=== PATIENT | male | born 1930 | race Caucasian/White ===

== ENCOUNTER 2017-12-21 12:17 | Inpatient (IN) | payer MEDICARE, BC ==
[~2017-12-21] VITALS: Ht 177.8 cm; Wt 68.2 kg
[2017-12-21 12:45] LABS: BASOPHILS % (AUTO) 0.3 % (0-1); EOSINOPHILS # (AUTO) 0.2 X10'3 (0-0.9); EOSINOPHILS % (AUTO) 3.1 % (0-6); HEMATOCRIT 34.5 % (42.0-52.0); HEMOGLOBIN 11.8 g/dl (14.0-17.9); LYMPHOCYTES # (AUTO) 0.7 X10'3 (1.1-4.8); MEAN CORPUSCULAR HEMOGLOBIN 32.4 PG (27.0-31.0); MEAN CORPUSCULAR HGB CONC 34.2 % (33.0-36.5); MEAN CORPUSCULAR VOLUME 94.7 FL (78-98); MEAN PLATELET VOLUME 8.8 FL (7.4-10.4); MONOCYTES # (AUTO) 0.5 X10'3 (0-0.9); NEUTROPHILS # (AUTO) 5.2 X10'3 (1.8-7.7); NEUTROPHILS % (AUTO) 77.6 % (42-75); PLATELET COUNT 179 X10'3 (140-440); RED BLOOD COUNT 3.65 X10'6 (4.70-6.10); RED CELL DISTRIBUTION WIDTH 13.7 % (11.5-14.5); WHITE BLOOD COUNT 6.7 X10'3 (4.5-11.0)
[2017-12-21 12:54] LABS: PARTIAL THROMBOPLASTIN TIME 29 SECONDS (22-32); PROTHROMBIN TIME 10.7 SECONDS (9.0-12.0)
[2017-12-21 13:07] LABS: ALANINE AMINOTRANSFERASE 19 U/L (12-78); ALBUMIN 3.5 G/DL (3.4-5.0); ALBUMIN/GLOBULIN RATIO 0.9 (1.1-1.5); ALKALINE PHOSPHATASE 75 IU/L (46-116); ANION GAP 6 (8-16); ASPARTATE AMINO TRANSFERASE 19 U/L (10-37); BILIRUBIN,TOTAL 0.8 MG/DL (0.1-1.0); BLOOD UREA NITROGEN 16 MG/DL (7-18); BUN/CREATININE RATIO 20.5 (5.4-32.0); CALCIUM 8.8 MG/DL (8.5-10.1); CHLORIDE 90 MMOL/L (99-107); CREATININE 0.78 MG/DL (0.60-1.10); GLUCOSE 108 MG/DL (70-104); MAGNESIUM 1.8 MG/DL (1.5-2.4); POTASSIUM 4.2 MMOL/L (3.5-5.1); SODIUM 123 MMOL/L (135-145); TOTAL CARBON DIOXIDE 26.6 MMOL/L (24-32); TOTAL PROTEIN 7.4 G/DL (6.4-8.2); eGFR > 90 ML/MIN
[2017-12-21] MEDS ORDERED: normal saline 1000ML IV soln IVB ONE (13:20)
[2017-12-21] MEDS ORDERED: potassium Cl 20 mEq SR tablet PO PRN ×2 (13:40)
[2017-12-21] MEDS ORDERED: magnesium 4gm in 100ml NS 100 ML IV PRN (13:40)
[2017-12-21] MEDS ORDERED: acetaminophen 325mg tablet PO PRN ×2 (13:40→18:15)
[2017-12-21] MEDS ORDERED: HYDROcodone/acetaminophen 5mg/325mg tablet PO PRN ×2 (13:40→18:15)
[2017-12-21] MEDS ORDERED: potassium Cl 40MEQ/NS 500ml 500 ML IV PRN ×2 (13:40)
[2017-12-21] MEDS ORDERED: MORPHINE 2MG in 2ml NS syringe IV PRN (13:40)
[2017-12-21] MEDS ORDERED: magnesium Cl slow-release 64mg tablet PO PRN (13:40)
[2017-12-21] MEDS ORDERED: mag hydrox/Alum hydrox/simeth 30ml oral suspension PO PRN ×2 (13:40→18:15)
[2017-12-21] MEDS ORDERED: magnesium hydroxide 30ml (MOM) UD suspension PO PRN ×2 (13:40→18:15)
[2017-12-21] MEDS ORDERED: magnesium 2GM in 50ml NS 50 ML IV PRN (13:40)
[2017-12-21] MEDS ORDERED: ondansetron/PF 4mg/2ml inj IV PRN ×2 (13:40→18:15)
[2017-12-21] MEDS ORDERED: CARV-50 PO (14:20)
[2017-12-21] MEDS ORDERED: LISI-600 PO (14:20)
[2017-12-21] MEDS ORDERED: LEVO112T5 PO (14:20)
[2017-12-21] MEDS ORDERED: FURO-150 PO (14:20)
[2017-12-21] MEDS ORDERED: ASPI-1265 PO (14:20)
[2017-12-21] MEDS ORDERED: ALBU8HFA PO (14:20)
[2017-12-21] MEDS ORDERED: FLUT1DIS INH (14:20)
[2017-12-21] MEDS ORDERED: OMEP20TA23 PO (14:20)
[2017-12-21 16:58] LABS: CLARITY,URINE CLEAR (Clear); COLOR,URINE YELLOW (Yellow); GLUCOSE, URINE NEGATIVE (Neg); KETONES,URINE TRACE mg/dl (Neg); LEUKOCYTE ESTERASE ,URINE SMALL (Neg); NITRITES, URINE NEGATIVE (Neg); OCCULT BLOOD,URINE LARGE (Neg); PH,URINE 5.5 (4.8-8.0); PROTEIN,URINE NEGATIVE (Neg); UROBILINOGEN,URINE 0.2 E.U/dL (0.2-1.0)
[2017-12-21 16:59] LABS: UA COLLECTION TYPE FOLEY CATH
[2017-12-21 17:08] LABS: BACTERIA,URINE NONE SEEN /HPF (Neg); SQUAMOUS EPITHELIAL CELL,UR NONE SEEN /LPF (FEW); WBC,URINE 0-4 /HPF (0-4)
[2017-12-21] MEDS ORDERED: morphine 4 MG/ML inj SYRINge IV PRN (18:15)
[2017-12-21] MEDS ORDERED: HYDROcodone/acetaminophen 10/325mg tab PO PRN (18:15)
[2017-12-21] MEDS ORDERED: DOBUTamine-DoBUTrex 500mg/D5W 250 ML IV SCH (18:15)
[2017-12-21] MEDS ORDERED: albuterol 2.5 MG/3 ML nebule NEB PRN (18:40)
[2017-12-21] MEDS: furosemide 40mg/4ml inj IV SCH (20:00)
[2017-12-21] MEDS ORDERED: temazepam 15mg capsule PO PRN (21:00)
[2017-12-21] MEDS ORDERED: LIDOcaine 1.5% w/epinephrine 1:200,000 5ml ampul SQ ONE (21:40)
[2017-12-21 23:00] VITALS: BP 93/48
[2017-12-22] VITALS (18 sets, daily range): BP systolic 74–100; BP diastolic 42–60
[2017-12-22] MEDS: normal saline 500ml IV soln 1,000 ML IV SCH ×3 (01:10→21:53)
[2017-12-22 01:19] LABS: ALBUMIN 2.9 G/DL (3.4-5.0); ANION GAP 7 (8-16); BLOOD UREA NITROGEN 13 MG/DL (7-18); BUN/CREATININE RATIO 18.8 (5.4-32.0); CALCIUM 8.4 MG/DL (8.5-10.1); CHLORIDE 93 MMOL/L (99-107); CREATININE 0.69 MG/DL (0.60-1.10); GLUCOSE 109 MG/DL (70-104); MAGNESIUM 1.8 MG/DL (1.5-2.4); POTASSIUM 3.6 MMOL/L (3.5-5.1); SODIUM 127 MMOL/L (135-145); TOTAL CARBON DIOXIDE 26.7 MMOL/L (24-32); eGFR > 90 ML/MIN
[2017-12-22 01:23] LABS: BASOPHILS % (AUTO) 0.6 % (0-1); EOSINOPHILS # (AUTO) 0.2 X10'3 (0-0.9); EOSINOPHILS % (AUTO) 3.3 % (0-6); HEMATOCRIT 31.1 % (42.0-52.0); HEMOGLOBIN 10.9 g/dl (14.0-17.9); LYMPHOCYTES # (AUTO) 0.7 X10'3 (1.1-4.8); LYMPHOCYTES % (AUTO) 14.9 % (21-51); MEAN CORPUSCULAR HGB CONC 34.9 % (33.0-36.5); MEAN CORPUSCULAR VOLUME 94.6 FL (78-98); MEAN PLATELET VOLUME 9.5 FL (7.4-10.4); MONOCYTES # (AUTO) 0.5 X10'3 (0-0.9); MONOCYTES % (AUTO) 9.4 % (2-12); NEUTROPHILS # (AUTO) 3.5 X10'3 (1.8-7.7); NEUTROPHILS % (AUTO) 71.8 % (42-75); PLATELET COUNT 164 X10'3 (140-440); RED BLOOD COUNT 3.29 X10'6 (4.70-6.10); RED CELL DISTRIBUTION WIDTH 12.5 % (11.5-14.5); WHITE BLOOD COUNT 4.9 X10'3 (4.5-11.0)
[2017-12-22] MEDS: normal saline 1000ml 1,000 ML IV SCH ×2 (06:10→11:10)
[2017-12-22] MEDS ORDERED: normal saline 500ml IV soln 1,000 ML IV SCH (06:40)
[2017-12-22] MEDS: K and/or MAG REPLACEMENT MC SCH (08:00)
[2017-12-22] MEDS: furosemide 40mg/4ml inj IV SCH ×2 (08:00→20:00)
[2017-12-22] MEDS ORDERED: aspirin 81mg tab.chew PO SCH (08:00)
[2017-12-22] MEDS ORDERED: carVEDilol 3.125mg tablet PO SCH (08:00)
[2017-12-22] MEDS ORDERED: lisinopril 10 MG tablet PO SCH (08:00)
[2017-12-22] MEDS ORDERED: DOBUTamine-DoBUTrex 500mg/D5W 250 ML IV SCH (08:30)
[2017-12-22] MEDS: pantoprazole 40mg Tablet.DR PO SCH (09:19)
[2017-12-22] MEDS: levoTHYROXINE 112mcg tablet PO SCH (09:20)
[2017-12-22] MEDS: DOBUTamine-DoBUTrex 500mg/D5W 250 ML IV SCH ×2 (10:35→20:22)
[2017-12-22] MEDS ORDERED: fentaNYL/PF 50MCG/1 ML 2ML syringe ONE (12:41)
[2017-12-22] MEDS ORDERED: nitroGLYCERIN-Tridil 50MG/D5W 250 ML IV ONE (12:41)
[2017-12-22] MEDS ORDERED: LIDOcaine 1%/PF (10mg/ml) 5ml vial ONE (12:41)
[2017-12-22] MEDS ORDERED: midazolam 2 mg/2 ml injection ONE (12:41)
[2017-12-22] MEDS ORDERED: iohexol 350 MG/ML 50ML vial IV ONE ×2 (12:42→14:29)
[2017-12-22] MEDS ORDERED: heparin 1,000unit/ml 10ml vial 10 ML ONE (12:42)
[2017-12-22] MEDS ORDERED: iohexol 350MG/ML 100ml bottle IV ONE ×3 (12:42→15:03)
[2017-12-22] MEDS ORDERED: heparin 1,000 UNITS/NS 500ml 500 ML ONE (14:37)
[2017-12-22] MEDS ORDERED: clopidogrel 300mg tablet ONE (15:13)
[2017-12-22] MEDS ORDERED: normal saline 1000ml 1,000 ML IV ONE (16:25)
[2017-12-22] MEDS ORDERED: OXAZEpam 15mg capsule PO PRN ×2 (16:30→16:40)
[2017-12-22] MEDS ORDERED: acetaminophen 325mg tablet PO PRN ×2 (16:30→16:40)
[2017-12-22] MEDS ORDERED: cyclobenzaprine 10mg tablet PO PRN (16:30)
[2017-12-22] MEDS ORDERED: aspirin 325mg tablet PO ONE (16:35)
[2017-12-22] MEDS ORDERED: magnesium hydroxide 30ml (MOM) UD suspension PO PRN (16:40)
[2017-12-22 17:51] LABS: ISTAT HGB ART 10.2 g/dl (14.0-18.0); ISTAT Hct ART 30 %PCV (42-52); ISTAT O2 SATURATION ARTERIAL 95 % (95-98); ISTAT SOURCE ART
[2017-12-22] MEDS ORDERED: docusate sod 100mg capsule PO SCH (20:00)
[2017-12-22] MEDS: carVEDilol 3.125mg tablet PO SCH (20:00)
[2017-12-22] MEDS: docusate sod 100mg capsule PO SCH (20:22)
[2017-12-23] VITALS (9 sets, daily range): BP systolic 84–94; BP diastolic 44–67
[2017-12-23 05:54] LABS: BASOPHILS % (AUTO) 0.5 % (0-1); EOSINOPHILS # (AUTO) 0.3 X10'3 (0-0.9); EOSINOPHILS % (AUTO) 5.1 % (0-6); HEMATOCRIT 28.4 % (42.0-52.0); HEMOGLOBIN 9.8 g/dl (14.0-17.9); LYMPHOCYTES # (AUTO) 0.6 X10'3 (1.1-4.8); LYMPHOCYTES % (AUTO) 11.8 % (21-51); MEAN CORPUSCULAR HEMOGLOBIN 32.7 PG (27.0-31.0); MEAN CORPUSCULAR HGB CONC 34.3 % (33.0-36.5); MEAN CORPUSCULAR VOLUME 95.3 FL (78-98); MEAN PLATELET VOLUME 9.2 FL (7.4-10.4); MONOCYTES # (AUTO) 0.6 X10'3 (0-0.9); MONOCYTES % (AUTO) 11.4 % (2-12); NEUTROPHILS # (AUTO) 3.5 X10'3 (1.8-7.7); NEUTROPHILS % (AUTO) 71.2 % (42-75); PLATELET COUNT 143 X10'3 (140-440); RED BLOOD COUNT 2.99 X10'6 (4.70-6.10); RED CELL DISTRIBUTION WIDTH 13.6 % (11.5-14.5); WHITE BLOOD COUNT 4.9 X10'3 (4.5-11.0)
[2017-12-23 06:53] LABS: ALBUMIN 2.6 G/DL (3.4-5.0); ANION GAP 8 (8-16); BLOOD UREA NITROGEN 6 MG/DL (7-18); CALCIUM 7.9 MG/DL (8.5-10.1); CHLORIDE 97 MMOL/L (99-107); CREATININE 0.67 MG/DL (0.60-1.10); GLUCOSE 82 MG/DL (70-104); MAGNESIUM 1.6 MG/DL (1.5-2.4); POTASSIUM 3.5 MMOL/L (3.5-5.1); SODIUM 130 MMOL/L (135-145); TOTAL CARBON DIOXIDE 24.8 MMOL/L (24-32); eGFR > 90 ML/MIN
[2017-12-23] MEDS: normal saline 500ml IV soln 1,000 ML IV SCH ×3 (07:10→20:49)
[2017-12-23] MEDS: K and/or MAG REPLACEMENT MC SCH (08:00)
[2017-12-23] MEDS ORDERED: clopidogrel 75mg tablet PO SCH (08:00)
[2017-12-23] MEDS: furosemide 40mg/4ml inj IV SCH ×2 (08:00→20:00)
[2017-12-23] MEDS: carVEDilol 3.125mg tablet PO SCH ×2 (08:00→20:00)
[2017-12-23] MEDS: pantoprazole 40mg Tablet.DR PO SCH (08:10)
[2017-12-23] MEDS: docusate sod 100mg capsule PO SCH ×2 (08:10→20:20)
[2017-12-23] MEDS: clopidogrel 75mg tablet PO SCH (08:11)
[2017-12-23] MEDS: spironolactone 25 MG tablet PO SCH (08:11)
[2017-12-23] MEDS: levoTHYROXINE 112mcg tablet PO SCH (08:11)
[2017-12-23] MEDS: aspirin 325mg tablet PO SCH (08:11)
[2017-12-23] MEDS ORDERED: aspirin 325mg tablet PO SCH (08:30)
[2017-12-23] MEDS: lisinopril 5mg tablet PO SCH (12:00)
[2017-12-23] MEDS: DOBUTamine-DoBUTrex 500mg/D5W 250 ML IV SCH (20:48)
[2017-12-24] VITALS (9 sets, daily range): BP systolic 84–114; BP diastolic 43–72
[2017-12-24 03:02] LABS: BASOPHILS # (AUTO) 0.1 X10'3 (0-0.2); BASOPHILS % (AUTO) 1.5 % (0-1); EOSINOPHILS # (AUTO) 0.4 X10'3 (0-0.9); EOSINOPHILS % (AUTO) 5.3 % (0-6); HEMATOCRIT 28.4 % (42.0-52.0); HEMOGLOBIN 9.8 g/dl (14.0-17.9); LYMPHOCYTES # (AUTO) 0.9 X10'3 (1.1-4.8); MEAN CORPUSCULAR HEMOGLOBIN 32.8 PG (27.0-31.0); MEAN CORPUSCULAR HGB CONC 34.6 % (33.0-36.5); MEAN CORPUSCULAR VOLUME 94.9 FL (78-98); MEAN PLATELET VOLUME 8.3 FL (7.4-10.4); MONOCYTES # (AUTO) 0.7 X10'3 (0-0.9); MONOCYTES % (AUTO) 10.7 % (2-12); NEUTROPHILS # (AUTO) 4.6 X10'3 (1.8-7.7); NEUTROPHILS % (AUTO) 69.5 % (42-75); PLATELET COUNT 152 X10'3 (140-440); RED BLOOD COUNT 2.99 X10'6 (4.70-6.10); RED CELL DISTRIBUTION WIDTH 13.5 % (11.5-14.5); WHITE BLOOD COUNT 6.7 X10'3 (4.5-11.0)
[2017-12-24 03:24] LABS: ALBUMIN 2.6 G/DL (3.4-5.0); ANION GAP 5 (8-16); BLOOD UREA NITROGEN 8 MG/DL (7-18); BUN/CREATININE RATIO 12.5 (5.4-32.0); CHLORIDE 97 MMOL/L (99-107); CREATININE 0.64 MG/DL (0.60-1.10); GLUCOSE 91 MG/DL (70-104); MAGNESIUM 1.7 MG/DL (1.5-2.4); POTASSIUM 3.9 MMOL/L (3.5-5.1); SODIUM 129 MMOL/L (135-145); TOTAL CARBON DIOXIDE 27.5 MMOL/L (24-32); eGFR > 90 ML/MIN
[2017-12-24] MEDS ORDERED: DOBUTamine-DoBUTrex 500mg/D5W 250 ML IV SCH (07:00)
[2017-12-24] MEDS: levoTHYROXINE 112mcg tablet PO SCH (07:27)
[2017-12-24] MEDS: docusate sod 100mg capsule PO SCH ×2 (07:27→20:19)
[2017-12-24] MEDS: pantoprazole 40mg Tablet.DR PO SCH (07:27)
[2017-12-24] MEDS: clopidogrel 75mg tablet PO SCH (07:28)
[2017-12-24] MEDS: aspirin 325mg tablet PO SCH (07:28)
[2017-12-24] MEDS: K and/or MAG REPLACEMENT MC SCH (08:00)
[2017-12-24] MEDS: carVEDilol 3.125mg tablet PO SCH ×2 (08:00→20:00)
[2017-12-24] MEDS: furosemide 40mg/4ml inj IV SCH (08:00)
[2017-12-24] MEDS: spironolactone 25 MG tablet PO SCH (08:30)
[2017-12-24] MEDS: cyclobenzaprine 10mg tablet PO PRN ×2 (10:59→20:21)
[2017-12-24] MEDS: lisinopril 5mg tablet PO SCH (12:00)
[2017-12-24] MEDS ORDERED: magnesium 2GM in 50ml NS 50 ML IV PRN (22:15)
[2017-12-24] MEDS ORDERED: potassium Cl 20 mEq SR tablet PO PRN ×2 (22:15)
[2017-12-24] MEDS ORDERED: magnesium 4gm in 100ml NS 100 ML IV PRN (22:15)
[2017-12-24] MEDS ORDERED: potassium Cl 40MEQ/NS 500ml 500 ML IV PRN ×2 (22:15)
[2017-12-24] MEDS: magnesium Cl slow-release 64mg tablet PO PRN (23:06)
[2017-12-24] MEDS ORDERED: LIDOcaine 2% 10ml TOPICAL JELLY (Urojet) MM ONE (23:50)
[2017-12-25 01:57] LABS: BASOPHILS # (AUTO) 0.1 X10'3 (0-0.2); BASOPHILS % (AUTO) 0.9 % (0-1); EOSINOPHILS # (AUTO) 0.7 X10'3 (0-0.9); EOSINOPHILS % (AUTO) 11.4 % (0-6); HEMATOCRIT 30.1 % (42.0-52.0); HEMOGLOBIN 10.4 g/dl (14.0-17.9); LYMPHOCYTES # (AUTO) 1.1 X10'3 (1.1-4.8); LYMPHOCYTES % (AUTO) 17.4 % (21-51); MEAN CORPUSCULAR HGB CONC 34.6 % (33.0-36.5); MEAN CORPUSCULAR VOLUME 95.5 FL (78-98); MEAN PLATELET VOLUME 8.9 FL (7.4-10.4); MONOCYTES # (AUTO) 0.5 X10'3 (0-0.9); MONOCYTES % (AUTO) 8.6 % (2-12); NEUTROPHILS # (AUTO) 3.8 X10'3 (1.8-7.7); NEUTROPHILS % (AUTO) 61.7 % (42-75); PLATELET COUNT 155 X10'3 (140-440); RED BLOOD COUNT 3.15 X10'6 (4.70-6.10); RED CELL DISTRIBUTION WIDTH 13.2 % (11.5-14.5); WHITE BLOOD COUNT 6.2 X10'3 (4.5-11.0)
[2017-12-25 01:59] LABS: ALBUMIN 2.7 G/DL (3.4-5.0); ANION GAP 6 (8-16); BLOOD UREA NITROGEN 11 MG/DL (7-18); BUN/CREATININE RATIO 16.9 (5.4-32.0); CALCIUM 8.2 MG/DL (8.5-10.1); CHLORIDE 96 MMOL/L (99-107); CREATININE 0.65 MG/DL (0.60-1.10); GLUCOSE 95 MG/DL (70-104); MAGNESIUM 1.8 MG/DL (1.5-2.4); SODIUM 129 MMOL/L (135-145); TOTAL CARBON DIOXIDE 26.9 MMOL/L (24-32); eGFR > 90 ML/MIN
[2017-12-25 03:00] VITALS: BP 96/63
[2017-12-25 06:55] VITALS: BP 102/68
[2017-12-25] MEDS: K and/or MAG REPLACEMENT MC SCH (08:00)
[2017-12-25] MEDS ORDERED: furosemide 40mg/4ml inj IV SCH (08:00)
[2017-12-25] MEDS: carVEDilol 3.125mg tablet PO SCH (08:00)
[2017-12-25] MEDS: levoTHYROXINE 112mcg tablet PO SCH (08:19)
[2017-12-25] MEDS: pantoprazole 40mg Tablet.DR PO SCH (08:19)
[2017-12-25] MEDS: aspirin 325mg tablet PO SCH (08:19)
[2017-12-25] MEDS: docusate sod 100mg capsule PO SCH (08:19)
[2017-12-25] MEDS: clopidogrel 75mg tablet PO SCH (08:19)
[2017-12-25] MEDS: magnesium Cl slow-release 64mg tablet PO PRN (08:20)
[2017-12-25] MEDS: cyclobenzaprine 10mg tablet PO PRN (08:25)
[2017-12-25] MEDS: spironolactone 25 MG tablet PO SCH (08:30)
[2017-12-25 11:00] VITALS: BP 83/56
[2017-12-25] MEDS: lisinopril 5mg tablet PO SCH (12:00)
[2017-12-25] MEDS ORDERED: SPIR25TA3 PO (12:56)
[2017-12-25] MEDS ORDERED: CLOP75TA35 PO (12:56)
[2017-12-25] MEDS ORDERED: LISI-604 PO (12:56)
[2017-12-25] MEDS ORDERED: COR3.125T PO (12:56)
[2017-12-26 05:41] LABS: ISTAT Hct MIX 29 %PCV (42-52); ISTAT O2 SATURATION MIX VENOUS 72 % (60-80); ISTAT SOURCE MIX
== END 2017-12-25 16:25 | disposition home or self-care (01) | DRG 246 ==
LOC: ER 12:17 → ED HOLD 13:38 → PCU 3S 22:40
PROVIDERS: ADMIT Internal Medicine; ATTEND Internal Medicine
PROC: 02HV33Z Insertion of Infusion Device into Superior Vena Cava, Percutaneous Approach (ICD-10-PCS; 2017-12-21)
PROC: 027034Z Dilation of Coronary Artery, One Artery with Drug-eluting Intraluminal Device, Percutaneous Approach (ICD-10-PCS; principal; 2017-12-22)
PROC: 4A023N8 Measurement of Cardiac Sampling and Pressure, Bilateral, Percutaneous Approach (ICD-10-PCS; 2017-12-22)
PROC: B2111ZZ Fluoroscopy of Multiple Coronary Arteries using Low Osmolar Contrast (ICD-10-PCS; 2017-12-22)
PROC: B2151ZZ Fluoroscopy of Left Heart using Low Osmolar Contrast (ICD-10-PCS; 2017-12-22)
PROC: B3101ZZ Fluoroscopy of Thoracic Aorta using Low Osmolar Contrast (ICD-10-PCS; 2017-12-22)
DX: I11.0 Hypertensive heart disease with heart failure (principal); R57.0 Cardiogenic shock; I44.2 Atrioventricular block, complete; I42.0 Dilated cardiomyopathy; E87.1 Hypo-osmolality and hyponatremia; I95.89 Other hypotension; I50.43 Acute on chronic combined systolic (congestive) and diastolic (congestive) heart failure; J44.9 Chronic obstructive pulmonary disease, unspecified; E03.9 Hypothyroidism, unspecified; D64.9 Anemia, unspecified; I25.10 Atherosclerotic heart disease of native coronary artery without angina pectoris; I35.2 Nonrheumatic aortic (valve) stenosis with insufficiency; I48.91 Unspecified atrial fibrillation; K21.9 Gastro-esophageal reflux disease without esophagitis; M19.90 Unspecified osteoarthritis, unspecified site; E55.9 Vitamin D deficiency, unspecified; Z95.0 Presence of cardiac pacemaker; Z79.899 Other long term (current) drug therapy; Z87.11 Personal history of peptic ulcer disease
CPT/HCPCS: 36556; 93306; 93460; 99285; C9600; 36415; 71045; 80048; 80053; 81001; 82803; 83735; 83880; 84484; 85014; 85025; 85347; 85610; 85730; 87070; 87088; 93005; 94640; 94760; 97116; 97162; 97530; A4315; A4620; A6257; C1725; C1751; C1760; C1769; C1874; C1894; J1250; J1644; J1940; J2001; J2250; J3010; J3490; J7030; Q9967